=== PATIENT | male | born 1990 | race Caucasian/White ===

== ENCOUNTER → 2018-06-27 23:38 | Outpatient (CLI) | payer BC ==
[2014-01-23 06:24] VITALS: BMI 26.0
[~2018-06-27 23:38] MED LIST: ULTRAM50 MG PO
== END | disposition home or self-care (01) ==
LOC: D.MAMMO 06-18 08:30 → D.US 06-18 09:00 → D.MAMMO 08:30
DX: N62 Hypertrophy of breast (principal)